=== PATIENT | male | born 1950 | race Caucasian/White ===

== ENCOUNTER 2021-03-13 12:59 | Emergency (ER) | payer MEDICARE, OTHER ==
[~2021-03-13] VITALS: Ht 172.7 cm; Wt 80.9 kg
[2021-03-13 13:48] LABS: BASOPHILS % (AUTO) 0.3 % (0-1); EOSINOPHILS % (AUTO) 0.5 % (0-6); HEMOGLOBIN 15.7 g/dl (14.0-17.9); LYMPHOCYTES # (AUTO) 0.7 X10'3 (1.1-4.8); LYMPHOCYTES % (AUTO) 10.5 % (21-51); MEAN CORPUSCULAR HEMOGLOBIN 31.6 PG (27.0-31.0); MEAN CORPUSCULAR HGB CONC 33.4 g/dL (33.0-36.5); MEAN CORPUSCULAR VOLUME 94.5 FL (78-98); MEAN PLATELET VOLUME 9.2 FL (7.4-10.4); MONOCYTES # (AUTO) 0.8 X10'3 (0-0.9); MONOCYTES % (AUTO) 12.5 % (2-12); NEUTROPHILS % (AUTO) 76.2 % (42-75); PLATELET COUNT 106 X10'3 (140-440); RED BLOOD COUNT 4.98 X10'6 (4.70-6.10); RED CELL DISTRIBUTION WIDTH 13.6 % (11.5-14.5); WHITE BLOOD COUNT 6.5 X10'3 (4.5-11.0)
[2021-03-13] MEDS ORDERED: diltiazem 5mg/ml 5ml inj. IV ONE (13:50)
[2021-03-13] MEDS ORDERED: normal saline 1000ML IV soln IVB ONE (13:50)
[2021-03-13 13:56] LABS: PARTIAL THROMBOPLASTIN TIME 33 SECONDS (22-32)
[2021-03-13 13:58] LABS: ALANINE AMINOTRANSFERASE 25 U/L (12-78); ALBUMIN 3.6 G/DL (3.4-5.0); ALBUMIN/GLOBULIN RATIO 1.1 (1.1-1.5); ALKALINE PHOSPHATASE 76 IU/L (46-116); ANION GAP 11 (8-16); ASPARTATE AMINO TRANSFERASE 14 U/L (10-37); BILIRUBIN,TOTAL 0.7 MG/DL (0.1-1.0); BLOOD UREA NITROGEN 26 MG/DL (7-18); BUN/CREATININE RATIO 19.5 (5.4-32.0); CALCIUM 8.6 MG/DL (8.5-10.1); CHLORIDE 104 MMOL/L (99-107); CREATININE 1.33 MG/DL (0.60-1.10); GLUCOSE 312 MG/DL (70-104); POTASSIUM 4.3 MMOL/L (3.5-5.1); SODIUM 138 MMOL/L (135-145); TOTAL CARBON DIOXIDE 22.9 MMOL/L (24-32); TOTAL PROTEIN 6.9 G/DL (6.4-8.2); eGFR 53 ML/MIN
[2021-03-13 14:17] LABS: MAGNESIUM 1.9 MG/DL (1.5-2.4)
[2021-03-13] MEDS ORDERED: PRED20TA PO (14:42)
[2021-03-13] MEDS ORDERED: ALBU6.7H9 INH (14:42)
[2021-03-13 15:21] VITALS: BP 103/70
== END 2021-03-13 15:10 | disposition home or self-care (01) ==
LOC: ER 12:59
DX: U07.1 COVID-19 (principal); I48.91 Unspecified atrial fibrillation; I50.9 Heart failure, unspecified; J44.9 Chronic obstructive pulmonary disease, unspecified; E11.9 Type 2 diabetes mellitus without complications; Z79.899 Other long term (current) drug therapy
CPT/HCPCS: 36415; 71045; 80053; 83735; 83880; 84443; 84484; 85025; 85610; 85730; 87635; 93005; 96361; 96374; 99285; C9803; J7030; J3490